=== PATIENT | male | born 1935 | race Caucasian/White ===

== ENCOUNTER 2023-04-13 12:09 | Emergency (ER) | payer MEDICARE, SELFPAY ==
[2023-04-13 12:22] VITALS: BP 116/46
--- NOTE | 2023-04-13 13:50 | ED.GENMED ---
History of Present Illness
General
Chief Complaint: Fall
Source: patient, ambulance crew and [facility]
Exam Limitations: none
Time Seen by Provider: 04/13/23 12:44
Nursing documentation reviewed up to this point in time: agreed with
Travel History
Have you had any contact with someone who has COVID-19?: No
Do you have any symptoms of coronavirus? Fever > 100 degrees, chills, cough, shortness of breath, sore throat, loss of taste or smell, muscle aches, or headache?: No
History of Present Illness
History of Present Illness:
87-year-old male with past ministry of hypertension hyperlipidemia, mesothelioma currently on hospice presenting after a ground-level fall hitting his head and his right knee. Patient is on thinners.
Past History
Past History
ED Past Medical History: Arrthythmia (Atrial fib), HTN, Hypercholesterolemia and Hypothyroidism
ED Past Surgical History: Other (Thyroidectomy)
Patient has exhibited threatening behavior?: No
Social History
Tobacco: Former smoker
Alcohol: Occasional
Drug: None
Personal:
Living: with family
Employment: Retired
Family History
Family History: Hypertension
Review of Systems
Review of Systems
Allergies reviewed?: Yes
All Other Systems: ROS reviewed and negative except as documented in HPI and ROS
Phy Exam
Physical Exam
Physical Exam:
GENERAL: Alert , in no apparent distress
EYE: pupils equal and reactive
NECK: Supple, no significant adenopathy.
ENT: o/p clr, mmm.
CARDIAC: Regular rate and rhythm .
LUNGS: Clear breath sounds bilaterally, no acute respiratory distress, no wheezes/rales/rhonchi
ABDOMEN: Soft, without focal tenderness, no r/g, no cvat
NEUROLOGICAL: Alert and oriented, no focal neuro deficits
SKIN: Warm and dry, skin intact.
MUSCULOSKELETAL: Mild pain and swelling to the right anterior knee. Good range of motion and strength no joint laxity. well perfused.
PSYCH: Normal and appropriate interaction.
Course
Orders/Labs/Results
Orders:
Orders
04/13/23 12:23
CT Head W/o Iv Contrast Urgent
Comment:
Reason For Exam: fall on thinners
Knee, Right 4 or More Views [CR Knee- Right 4 Or More View*] Urgent
Comment:
Reason For Exam: fall, knee pain
Vital Signs
Initial and Last Documented VS:
Initial Vital Signs
Temp Pulse Resp BP Pulse Ox
98.8 F 82 17 116/46 100
04/13/23 12:22 04/13/23 12:22 04/13/23 12:22 04/13/23 12:22 04/13/23 12:22
Last Documented Vital Signs
Temp Pulse Resp BP Pulse Ox
98.8 F 82 17 116/46 100
04/13/23 12:22 04/13/23 12:22 04/13/23 12:22 04/13/23 12:22 04/13/23 12:22
MDM/Problems Addressed
MDM/Problems Addressed:
87-year-old male presenting to the emergency department today with concerns of right knee pain and believes he may have hit his head after a ground-level fall where he slipped lost his footing denies any additional concerns otherwise feels well no
head or neck discomfort no numbness or weakness. Has mild pain to his knee. No additional concerns. CT scan negative. X-ray without signs of emergent pathology able to move the knee fully no laxity. Stable for outpatient management.
*Critical Care Note
Total Time (30-74mins, 75-104mins- exclusive of procedures): Not Applicable
ED Attending Note
-
Portions of this chart may have been created with voice recognition software.� Occasional wrong word or��sound alike� substitutions may have occurred due to the inherent limitations of voice recognition software.
Discharge Plan
Departure
Patient Disposition: Home (Routine Discharge)
Date of Disposition: 04/13/23
Time of Disposition: 13:53
Patient with high blood pressure during this ER visit?: No
Condition: Good
Covid-19: Not Applicable
Discharge Problem:
Fall, Knee sprain
Instructions: Contusion (DC), Preventing falls in adults
Prescriptions:
No Action
nitroglycerin 0.4 MG tablet, sublingual
0.4 mg sublingual [id number] PRN (Reason: chest pain) Qty: 25 2RF
isosorbide mononitrate 60 MG tablet extended release 24 hr
60 mg PO DAILY
rosuvastatin 5 MG tablet
5 mg PO DAILY
ondansetron HCl 8 mg tablet
8 mg PO Q8 PRN (Reason: NAUSEA/VOMITING)
prochlorperazine maleate 10 mg tablet
10 mg PO Q6 PRN (Reason: NAUSEA)
levothyroxine [Synthroid] 150 mcg tablet
150 mcg PO DAILY
gabapentin 300 mg capsule
300 mg PO HS
buprenorphine 20 mcg/hour patch weekly
20 mcg topical MCGRATH
furosemide 20 mg Tablet
20 mg PO Q48H Qty: 30 0RF
diltiazem HCl 240 mg Capsule,Extended Release 24hr
240 mg PO DAILY Qty: 0 0RF
Eliquis 5 mg Tablet
5 mg PO BID Qty: 0 0RF
Referrals:
Susan Luo MD [Family Provider] -
Activity Restrictions/Additional Instructions:
You came to emergency department today after a fall. Here you a reassuring evaluation normal x-ray and CT please rest ice compress your knee to help with symptoms over the next week or so. Return to the emergency department for any worsening, new
or concerning symptoms.
== END 2023-04-13 16:55 | disposition home or self-care (01) ==
LOC: EMR 12:09
PROVIDERS: EMERGENCY PHYSICIAN Emergency Medicine; FAMILY PHYSICIAN Internal Medicine Geriatric Medicine
DX: M25.561 Pain in right knee (principal); W19.XXXA Unspecified fall, initial encounter; I10 Essential (primary) hypertension; E78.00 Pure hypercholesterolemia, unspecified; C45.9 Mesothelioma, unspecified; E03.9 Hypothyroidism, unspecified; Z51.5 Encounter for palliative care; Z79.01 Long term (current) use of anticoagulants; Z82.49 Family history of ischemic heart disease and other diseases of the circulatory system; Z87.891 Personal history of nicotine dependence
CPT/HCPCS: 99284; 70450; 73564